=== PATIENT | female | born 1975 ===

== ENCOUNTER 2021-08-18 06:39 | Day surgery (SDC) | payer OTHER ==
[2021-08-18] MEDS ORDERED: PERCOCET 5-3251 EACH PO (09:09)
== END 2021-08-18 12:05 | disposition home or self-care (01) ==
LOC: CIR.AMB 06:39
PROVIDERS: ATTEND Obstetrics & Gynecology Gynecology
DX: N90.69 Other specified hypertrophy of vulva (principal)